=== PATIENT | female | born 1945 | race Caucasian/White ===

== ENCOUNTER 2022-04-07 15:07 | Outpatient (CLI) | payer OTHER, SELFPAY | END 2022-04-07 15:08 | disposition home or self-care (01) | LOC: NFLDREF 04-18 09:22 | PROVIDERS: PCP Internal Medicine; Visit Provider Registered Nurse | DX: R30.0 Dysuria (principal); R35.0 Frequency of micturition; N39.0 Urinary tract infection, site not specified | CPT/HCPCS: 87086; 87186 ==

== ENCOUNTER 2022-05-20 14:29 | Outpatient (CLI) | payer OTHER, SELFPAY ==
[2022-05-20 09:51] LABS: Cholesterol* 151 mg/dL (90-199)
[2022-05-20 09:52] LABS: HDL Cholesterol* 69 mg/dL (>=50); LDL Cholesterol Calculated 67 mg/dL (<100); Triglycerides* 75 mg/dL (40-149)
[2022-05-20 10:42] LABS: Vitamin B12* 571 pg/mL (243-894)
== END 2022-05-20 14:30 | disposition home or self-care (01) ==
PROVIDERS: PCP Internal Medicine; Visit Provider Internal Medicine
DX: E78.5 Hyperlipidemia, unspecified (principal)
CPT/HCPCS: 80061; 82607

== ENCOUNTER 2023-06-17 07:55 | Outpatient (CLI) | payer OTHER, SELFPAY | END 2023-06-17 07:56 | disposition home or self-care (01) | PROVIDERS: PCP Internal Medicine; Referring Provider Internal Medicine; Visit Provider Internal Medicine | DX: I25.10 Atherosclerotic heart disease of native coronary artery without angina pectoris (principal) | CPT/HCPCS: 80061 ==

== ENCOUNTER 2024-06-23 07:40 | Outpatient (CLI) | payer OTHER, SELFPAY | END 2024-06-23 07:41 | disposition home or self-care (01) | LOC: NFLDREF 06-26 16:00 | PROVIDERS: PCP Internal Medicine; Referring Provider Internal Medicine; Visit Provider Internal Medicine | DX: E78.5 Hyperlipidemia, unspecified (principal); I25.10 Atherosclerotic heart disease of native coronary artery without angina pectoris | CPT/HCPCS: 80061 ==

== ENCOUNTER 2024-07-18 20:04 | Outpatient (CLI) | payer OTHER, SELFPAY | END 2024-07-18 20:05 | disposition home or self-care (01) | LOC: SLEEP 20:05 | PROVIDERS: PCP Internal Medicine; Visit Provider Internal Medicine | DX: G47.33 Obstructive sleep apnea (adult) (pediatric) (principal) | CPT/HCPCS: 95811; A9270 ==

== ENCOUNTER 2025-03-18 08:50 | Outpatient (CLI) | payer OTHER, SELFPAY | END 2025-03-18 08:51 | disposition home or self-care (01) | LOC: NFLDREF 03-21 08:00 | PROVIDERS: PCP Internal Medicine; Referring Provider Internal Medicine; Visit Provider Physician Assistant Surgical | DX: N30.01 Acute cystitis with hematuria (principal); B96.20 Unspecified Escherichia coli [E. coli] as the cause of diseases classified elsewhere | CPT/HCPCS: 87086 ==

== ENCOUNTER 2025-04-16 09:57 | Outpatient (CLI) | payer OTHER, SELFPAY | END 2025-04-16 09:58 | disposition home or self-care (01) | LOC: NFLDREF 04-17 10:00 | PROVIDERS: PCP Internal Medicine; Referring Provider Internal Medicine; Visit Provider Nurse Practitioner Family | DX: N30.90 Cystitis, unspecified without hematuria (principal) | CPT/HCPCS: 87086 ==

== ENCOUNTER 2025-06-28 07:36 | Outpatient (CLI) | payer OTHER, SELFPAY | END 2025-06-28 07:37 | disposition home or self-care (01) | LOC: NFLDREF 07-03 18:50 | PROVIDERS: PCP Internal Medicine; Referring Provider Internal Medicine; Visit Provider Internal Medicine | DX: I25.10 Atherosclerotic heart disease of native coronary artery without angina pectoris (principal) | CPT/HCPCS: 80061 ==